=== PATIENT | male | born 1985 | race Caucasian/White ===

== ENCOUNTER 2022-02-25 20:56 | Emergency (ER) | payer MEDICARE, OTHER ==
[~2022-02-25] VITALS: Ht 185.4 cm; Wt 107.3 kg
[2022-02-25 22:33] LABS: BASOPHILS % (AUTO) 0.5 % (0.0-2.0); EOSINOPHILS % (AUTO) 2.2 % (1.0-6.0); HEMATOCRIT 38.2 % (41-53); HEMOGLOBIN 12.4 g/dL (13.5-17.5); LYMPHOCYTES # (AUTO) 2.8 K/uL (1.0-4.8); LYMPHOCYTES % (AUTO) 33.8 % (22.0-44.0); MEAN CORPUSCULAR HEMOGLOBIN 28.5 pg (26.0-34.0); MEAN CORPUSCULAR HGB CONC 32.4 G/dL (31.0-37.0); MEAN CORPUSCULAR VOLUME 88 fL (80-100); MONOCYTES # (AUTO) 0.5 K/uL (0.1-1.0); MONOCYTES % (AUTO) 5.9 % (2.0-9.0); NEUTROPHILS # (AUTO) 4.8 K/uL (1.8-7.7); NEUTROPHILS % (AUTO) 57.6 % (40.0-70.0); PLATELET COUNT (AUTO) 176 K/uL (150-450); RED BLOOD CELL COUNT(AUTO) 4.34 MIL/uL (4.50-5.90); RED CELL DISTRIBUTION WIDTH 18.8 % (11.5-14.5)
[2022-02-25 22:37] LABS: ANION GAP 10 mmol/L (8-16); CARBON DIOXIDE 30 mmol/L (22-29); CHLORIDE 105 mmol/L (98-107); CREATININE 0.85 mg/dL (0.60-1.30); GLUCOSE,RANDOM 101 mg/dL (70-110); POTASSIUM 3.2 mmol/L (3.5-5.1); SODIUM SERUM 145 mmol/L (136-145); UREA NITROGEN, BLOOD 8 mg/dL (7-18)
[2022-02-25 22:40] LABS: GLOMERULAR FILTR. RATE CALC > 60 mL/min (>60)
[2022-02-25 22:44] LABS: ALANINE AMINOTRANSFERASE 62 U/L (12-78); ALBUMIN 3.5 g/dL (3.4-5.0); ALKALINE PHOSPHATASE 173 U/L (46-116); ASPARTATE AMINOTRANSFERASE 21 U/L (15-37); BILIRUBIN,TOTAL 0.1 mg/dL (0.1-1.0); TOTAL PROTEIN, SERUM 6.9 g/dL (6.4-8.2)
[2022-02-25] MEDS ORDERED: POTASSIUM CHLORIDE 10% 40 MEQ/30 ML LIQUID UDCUP PO ONE (23:00)
[2022-02-26] MEDS: KETOROLAC TROMETHAMINE 30 MG/ML VIAL IM ONE ×2 (03:00→03:18)
[2022-02-26] MEDS ORDERED: HYDROmorphone HCL 2 MG/ML SYRINGE IM ONE (03:15)
[2022-02-26] MEDS ORDERED: ACETAMINOPHEN 325 MG TABLET PO ONE (07:15)
[2022-02-26 08:50] VITALS: BP 116/80
== END 2022-02-26 09:13 | disposition home or self-care (01) ==
LOC: EMS 21:00 → EDBD 21:00 → EMS 02-26 09:13
DX: R41.82 Altered mental status, unspecified (principal); F10.129 Alcohol abuse with intoxication, unspecified; M25.511 Pain in right shoulder; Z86.69 Personal history of other diseases of the nervous system and sense organs; Z98.890 Other specified postprocedural states; Z89.611 Acquired absence of right leg above knee; Y90.7 Blood alcohol level of 200-239 mg/100 ml
CPT/HCPCS: 99291; 80053; 85025; 36415; 73030; 96372; G0480; J1170; J1885; 99285

== ENCOUNTER 2025-02-05 23:22 | Inpatient (IN) | payer MEDICARE, OTHER ==
[~2025-02-05] VITALS: Ht 182.9 cm; Wt 107.0 kg
[2025-02-05] MEDS: MIDAZOLAM HCL 5 MG/ML VIAL IM ONE (23:24)
[2025-02-05] MEDS: SODIUM CHLORIDE 0.9% 1,000 ML IV ONE (23:56)
[2025-02-05] MEDS: LevETIRAcetam 2,000 MG in DEXTROSE 5%-WATER 250 ML IV ONE (23:56)
[2025-02-06] VITALS (8 sets, daily range): BP systolic 97–143; BP diastolic 66–107; PULSE 76–289; RESP 18–19; TEMP 97.8–98.2; O2SAT 95–100
[2025-02-06] MEDS ORDERED: ACETAMINOPHEN 325 MG TABLET PO PRN (00:45)
[2025-02-06] MEDS ORDERED: ONDANSETRON HCL 4 MG/2 ML VIAL IVP PRN (00:45)
[2025-02-06 00:58] LABS: PLATELET COUNT (AUTO) 105 K/uL (150-450); RED BLOOD CELL COUNT(AUTO) 4.01 MIL/uL (4.50-5.90); RED CELL DISTRIBUTION WIDTH 16.6 % (11.5-14.5); WHITE BLOOD COUNT (AUTO) 4.5 K/uL (4.5-11.0)
[2025-02-06 01:03] LABS: CALCIUM, TOTAL 8.4 mg/dL (8.8-10.5); CREATININE 0.66 mg/dL (0.60-1.30); GLOMERULAR FILTR. RATE CALC > 60 mL/min (>60); GLUCOSE,RANDOM 105 mg/dL (70-110); SODIUM SERUM 140 mmol/L (136-145); UREA NITROGEN, BLOOD 11 mg/dL (7-18)
[2025-02-06 01:09] LABS: CREATINE KINASE, TOTAL ONLY 161 U/L (39-308)
[2025-02-06 01:13] LABS: LACTIC ACID 0.8 mmol/L (0.4-2.0)
[2025-02-06 01:13] LABS: TROPONIN I-HIGH SENSITIVITY 4 ng/L (<76)
[2025-02-06] MEDS ORDERED: PREG300C20 PO (01:48)
[2025-02-06] MEDS ORDERED: OXYC10TA59 PO (01:48)
[2025-02-06] MEDS ORDERED: DOCU-412 PO (01:48)
[2025-02-06] MEDS ORDERED: ESZO3TAB53 PO (01:48)
[2025-02-06] MEDS ORDERED: CLON0.1T2 PO (02:27)
[2025-02-06] MEDS ORDERED: CLON-595 PO (02:27)
[2025-02-06] MEDS ORDERED: FLUO-342 PO (02:27)
[2025-02-06] MEDS: MORPHINE SULFATE 2 MG/ML SYRINGE IVP ONE ×2 (05:52→06:49)
[2025-02-06] MEDS: LevETIRAcetam 1,000 MG in DEXTROSE 5%-WATER 100 ML IV SCH (05:57)
[2025-02-06 07:03] LABS: APPEARANCE,URINE CLEAR (CLEAR); GLUCOSE, URINE (UA) NEGATIVE (NEGATIVE); LEUKOCYTE ESTERASE ,URINE NEGATIVE (NEGATIVE); NITRATE,URINE NEGATIVE (NEGATIVE); OCCULT BLOOD,URINE NEGATIVE (NEGATIVE); PH,URINE DRUG SCREEN 7.0 (5.0-8.0); SPECIFIC GRAVITIY, URINE 1.009 (1.003-1.030)
[2025-02-06 07:16] LABS: ALCOHOL, URINE DRUG SCREEN NEGATIVE (NEGATIVE); AMPHET/METH SCREEN,URINE NEGATIVE (NEGATIVE); BARBITURATE SCREEN, URINE POSITIVE (NEGATIVE); CANNABINOID SCREEN,URINE NEGATIVE (NEGATIVE); COCAINE SCREEN,URINE NEGATIVE (NEGATIVE); METHADONE SCREEN, URINE NEGATIVE (NEGATIVE)
[2025-02-06] MEDS: HEPARIN SODIUM,PORCINE 5,000 UNITS/ML VIAL SQ SCH (08:00)
[2025-02-06] MEDS: FAMOTIDINE 20 MG TABLET PO SCH (08:13)
[2025-02-06] MEDS: DOCUSATE SODIUM 100 MG CAPSULE PO SCH (09:00)
[2025-02-06] MEDS ORDERED: DIVA-112 PO (16:26)
[2025-02-06] MEDS ORDERED: OXYC15TA PO (16:26)
[2025-02-06] MEDS ORDERED: CHOL200059 PO (16:26)
[2025-02-06] MEDS ORDERED: LIRA3PEN SQ (16:26)
[2025-02-06] MEDS ORDERED: CLON-592 PO (16:26)
[2025-02-06] MEDS ORDERED: FOLI-130 PO (16:26)
[2025-02-06] MEDS ORDERED: MAGN-169 PO (16:30)
[2025-02-06] MEDS ORDERED: BISA10SU11 PR (16:30)
[2025-02-06] MEDS ORDERED: PRAZ1 PO (16:30)
[2025-02-06] MEDS ORDERED: THIA50TA13 PO (16:30)
[2025-02-06] MEDS ORDERED: SODIUM CHLORIDE 0.9% 1,000 ML ONE (17:17)
[2025-02-07] VITALS (8 sets, daily range): BP systolic 92–129; BP diastolic 61–81; PULSE 83–95; RESP 17–19; TEMP 97.7–98.4; O2SAT 96–99
[2025-02-07] MEDS: LORazepam 2 MG/ML VIAL IVP PRN (02:24)
[2025-02-07 06:54] LABS: PLATELET COUNT (AUTO) 112 K/uL (150-450); RED BLOOD CELL COUNT(AUTO) 4.42 MIL/uL (4.50-5.90); RED CELL DISTRIBUTION WIDTH 17.0 % (11.5-14.5); WHITE BLOOD COUNT (AUTO) 5.9 K/uL (4.5-11.0)
[2025-02-07 07:07] LABS: CALCIUM, TOTAL 8.9 mg/dL (8.8-10.5); CREATININE 0.59 mg/dL (0.60-1.30); GLOMERULAR FILTR. RATE CALC > 60 mL/min (>60); GLUCOSE,RANDOM 90 mg/dL (70-110); SODIUM SERUM 141 mmol/L (136-145); UREA NITROGEN, BLOOD 7 mg/dL (7-18)
[2025-02-07] MEDS ORDERED: MAGNESIUM HYDROXIDE SUSPENSION 30 ML UDCUP PO PRN (08:00)
[2025-02-07] MEDS ORDERED: OxyCODONE HCL 10 MG ER TABLET PO PRN (08:00)
[2025-02-07] MEDS ORDERED: ESZOPICLONE 3 MG TABLET PO PRN (08:00)
[2025-02-07] MEDS ORDERED: DOCUSATE SODIUM 250 MG CAPSULE PO PRN (08:00)
[2025-02-07] MEDS ORDERED: BISACODYL 10 MG RECTAL RECTAL SUPPOSITORY PR PRN (08:00)
[2025-02-07] MEDS: PREGABALIN 75 MG CAPSULE PO SCH (09:00)
[2025-02-07] MEDS: THIAMINE 100 MG TABLET PO SCH (09:10)
[2025-02-07] MEDS: DIVALPROEX SODIUM 500 MG DR TABLET PO SCH (09:12)
[2025-02-07] MEDS: CHOLECALCIFEROL (VIT D3) 2,000 UNITS [50 MCG] TABLET PO SCH (09:12)
[2025-02-07] MEDS: FOLIC ACID 1 MG TABLET PO SCH (09:12)
[2025-02-07] MEDS ORDERED: OxyCODONE HCL 10 MG IR TABLET PO SCH (12:00)
[2025-02-07] MEDS: OxyCODONE HCL 5 MG IR TABLET PO PRN (13:37)
[2025-02-07] MEDS: OxyCODONE HCL 10 MG ER TABLET PO SCH (15:43)
[2025-02-07] MEDS: PRAZOSIN HCL 1 MG CAPSULE PO SCH (20:20)
[2025-02-08 03:24] VITALS: BP 105/71; PULSE 79; RESP 18; TEMP 97.7; O2SAT 97
[2025-02-08 07:55] VITALS: BP 99/59; PULSE 81; RESP 18; TEMP 98; O2SAT 98
[2025-02-08 11:49] VITALS: BP 113/75; PULSE 84; RESP 19; TEMP 98.2; O2SAT 99
[2025-02-08 15:25] VITALS: BP 104/75; PULSE 95; RESP 19; TEMP 98; O2SAT 99
[2025-02-08] MEDS ORDERED: ETHYL ALCOHOL 62% ANTISEPTIC NASAL SANITIZER 0.6 ML AMPUL NASAL SCH (21:00)
[2025-02-13] MEDS ORDERED: [UNRECOGNIZED DRUG - CODE] PO (14:52)
[2025-02-13] MEDS ORDERED: OXYC10TA59 PO (14:52)
[2025-02-13] MEDS ORDERED: CLON-595 PO (14:52)
[2025-02-13] MEDS ORDERED: CLON-592 PO (14:52)
[2025-02-14] MEDS ORDERED: LEVE-71 PO (07:57)
[2025-02-14] MEDS ORDERED: FAMO20 PO (07:57)
[2025-02-14] MEDS ORDERED: DOCU-385 PO (07:57)
== END 2025-02-08 19:00 | DRG 101 ==
LOC: EMS 23:29 → EDH 02-06 00:42 → 5N 02-06 08:50
PROVIDERS: ADMIT Internal Medicine; ATTEND Internal Medicine
DX: G40.901 Epilepsy, unspecified, not intractable, with status epilepticus (principal); G89.29 Other chronic pain; F43.10 Post-traumatic stress disorder, unspecified; F41.9 Anxiety disorder, unspecified; F32.A Depression, unspecified; F17.210 Nicotine dependence, cigarettes, uncomplicated; Z88.1 Allergy status to other antibiotic agents; Z88.2 Allergy status to sulfonamides; Z88.3 Allergy status to other anti-infective agents; Z88.5 Allergy status to narcotic agent; Z88.6 Allergy status to analgesic agent; Z89.512 Acquired absence of left leg below knee; Z79.899 Other long term (current) drug therapy; Z88.8 Allergy status to other drugs, medicaments and biological substances
CPT/HCPCS: 51702; 71045; 80048; 80307; 81003; 82140; 82550; 83605; 84484; 85025; 85610; 87040; 87081; 93005; 97110; 97163; 97530; 99285; J0712; J1171; J1644; J2060; J2270; J7030; J7060; 36415-L1; 36415-TC